=== PATIENT | male | born 1980 | race Caucasian/White ===

== ENCOUNTER → 2019-09-18 | Outpatient (CLI) | payer BC | END | disposition home or self-care (01) | LOC: LAB EV 14:16 → LAB SHORT 14:16 | DX: H00.12 Chalazion right lower eyelid (principal) | CPT/HCPCS: 87070; 87205 ==

== ENCOUNTER 2025-05-18 10:06 | Day surgery (SDC) | payer BC ==
[~2025-05-18] VITALS: Ht 162.6 cm; Wt 93.1 kg
[~2025-05-18 10:06] MED LIST: NS 500 ML IV ONE
[2025-05-18] MEDS ORDERED: CeFAZolin Sodium 2,000 MG VIAL ONE (10:53)
[2025-05-18] MEDS ORDERED: Prinivil10 MG PO (11:01)
[2025-05-18] MEDS ORDERED: NS 500 ML IV ONE (11:14)
--- NOTE | 2025-05-18 11:15 | NUR ---
05/18/25 [facility]5 [facility] 1107: TIMEOUT AND PRE-OP INJECTION BY DR LOGAN, 5 CC INJECTED TO OPERATIVE SIDE OF MIX OF (9 CC LIDOCAINE 1% WITH EPI 1:100,000 WITH 1 CC SODIUM BICARB). PT TOLERATED WELL. NO FURTHER NEEDS.
[2025-05-18] MEDS ORDERED: Midazolam HCl 1MG / ML 2ML Vial ONE (11:22)
[2025-05-18] MEDS ORDERED: FentaNYL Citrate 50 MCG/ML 2 ML Injection ONE (11:22)
[2025-05-18 11:54] VITALS: BP 118/86
== END 2025-05-18 12:18 | disposition home or self-care (01) ==
LOC: ORSCSDS 10:06
PROVIDERS: Orthopaedic Surgery
PROC: 0LN80ZZ Release Left Hand Tendon, Open Approach (ICD-10-PCS; principal; 2025-05-18 11:30)
DX: M65.342 Trigger finger, left ring finger (principal); I10 Essential (primary) hypertension
CPT/HCPCS: J0690; J2250; J2704; J3010; J7040